=== PATIENT | female | born 1960 | race Caucasian/White ===

== ENCOUNTER → 2021-08-08 | Outpatient (CLI) | payer BC, OTHER ==
[~2021-08-08] MED LIST: ASPIR 8181 MG PO; ASPIRIN EC325 M1 PO; BIOTIN10000 MC1 PO; CVS BUFFERED A325 MG PO; LIPITOR 20 MG T20 M1 PO; MOBIC15 MG PO; MS CONTIN15 MG PO; MULTIVITAMINS1 EAC7 PO; NEURONTIN 300300 M1 PO; PERCOCET 10-321 EACH PO; ULTRAM 50MG TAB50 MG PO; ZESTORETIC 20-1 EAC3 PO
== END ==
LOC: SJCVCIMAG 13:17
PROVIDERS: ATTEND Family Medicine
DX: G45.9 Transient cerebral ischemic attack, unspecified (principal); Z87.891 Personal history of nicotine dependence; Z72.89 Other problems related to lifestyle; Z79.899 Other long term (current) drug therapy